=== PATIENT | female | born 1970 | race Caucasian/White ===

== ENCOUNTER 2019-06-03 04:17 | Emergency (ER) | payer BC ==
[~2019-06-03] VITALS: Ht 172.7 cm; Wt 61.2 kg
[2019-06-03] MEDS ORDERED: SERTRALINE HCL100 MG PO (04:35)
[2019-06-03 05:21] LABS: ALBUMIN 3.8 g/dL (3.4-5.0); ANION GAP 12 mmol/L (7-16); BUN 16 mg/dL (7-18); CALCIUM 8.4 mg/dL (8.5-10.1); CHLORIDE 106 mmol/L (98-107); CO2 24 mmol/L (21-32); CREATININE 0.8 mg/dL (0.6-1.0); GLUCOSE 132 mg/dL (74-106); SGOT 18 U/L (15-37); SGPT 16 U/L (30-65); SODIUM 142 mmol/L (136-145); TOTAL BILIRUBIN 0.4 mg/dL (<0.1-1.0); TOTAL PROTEIN 6.8 g/dL (6.4-8.2); TROPONIN-I <0.06 ng/mL (<0.06)
[2019-06-03 05:26] LABS: ABSOLUTE NEUTROPHILS 4.4 thou/uL (1.4-8.2); EOSINOPHILS 2.4 % (0.0-3.0); HEMATOCRIT 38.8 % (37.0-47.0); HEMOGLOBIN 13.1 gm/dL (12.0-15.0); MCH 32.1 pg (26.0-34.0); MCHC 33.7 g/dL (28.0-37.0); MCV 95.1 fL (80.0-100.0); MONOCYTES 8.8 % (1.0-8.0); PLATELET COUNT 323 thou/uL (150-400); POLYS 60.8 % (36.0-66.0); RBC 4.09 mil/uL (4.20-5.00); RDW 12.5 % (10.5-14.5); WBC 7.3 thou/uL (4.0-11.0)
[2019-06-03 05:29] LABS: POTASSIUM 2.9 mmol/L (3.5-5.1)
[2019-06-03 05:46] VITALS: BP 119/64
--- NOTE | 2019-06-03 08:36 | EKG ---
[facility] [place] [address] ELECTROCARDIOGRAM REPORT Name: THIAGO ASHFORD Room #: DEP [facility]#: [id number] Admission: 06/03/19 Attend Phys: Discharge: 06/03/19 Date of : 68 Report #: [id number] THIS REPORT FOR: cc: LOW JUAREZ CHRISTOPHER F DO Lundgren, Craig H. 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1970 Requested By: Gilson Herbert Order Number: [id number] MD: Anshu Moore Measurements Intervals [place] Rate: 86 P: 60 ME: 167 QRS: 45 QRSD: 96 T: -3 QT: 364 QTc: 436 Interpretive Statements Sinus rhythm Nonspecific ST segment abnormality No previous ECG available for comparison Electronically Signed On 06-03-2019 8:35:20 CDT by Anshu Moore [email or web address] <ELECTRONICALLY SIGNED> By: Anshu Moore MD, [facility] 06/03/19 [id number] Anshu Moore MD, [facility] /EPI
== END 2019-06-03 05:51 | disposition home or self-care (01) ==
LOC: ER 04:17
PROVIDERS: Emergency Medicine
DX: R20.2 Paresthesia of skin (principal); E87.6 Hypokalemia; R42 Dizziness and giddiness; Z79.899 Other long term (current) drug therapy; Z88.2 Allergy status to sulfonamides